=== PATIENT | female | born 1930 | race Caucasian/White ===

== ENCOUNTER 2018-07-12 11:50 | Emergency (ER) | payer MEDICARE ==
[2018-07-12 12:21] VITALS: BP 143/85
--- NOTE | 2018-07-12 12:26 | UC ---
UC General HPI - HPI Summary HPI Summary: pt c/o 10 day hx urinary frequency and irritation with urination for about 10 days. no abdominal pain, flank pain or fever. - History of Current Complaint Stated Complaint: URINARY COMPLAINT Time Seen by Provider: 07/12/18 12:12 Hx Obtained From: Patient Onset/Duration: Gradual Onset Timing: Constant Associated Signs & Symptoms: Negative: Abdominal Pain, Fever - Allergy/Home Medications Allergies/Adverse Reactions: Allergies Allergy/AdvReac Type Severity Reaction Status Date / Time No Known Allergies Allergy Verified 07/12/18 12:21 PMH/Surg Hx/FS Hx/Imm Hx - Additional Past Medical History Additional PMH: cardiac valve dz Endocrine History: Thyroid Disease, Dyslipidemia Cardiovascular History: Hypertension GI/ History: Gastroesophageal Reflux - Surgical History Surgical History: Yes Surgery Procedure, Year, and Place: triple bipass, abd surgery for adhesions - Family History Known Family History: Positive: Non-Contributory - Social History Occupation: Retired Substance Use Type: None - Immunization History Vaccination Up to Date: Yes Review of Systems All Other Systems Reviewed And Are Negative: Yes Constitutional: Positive: Negative Skin: Positive: Negative Eyes: Positive: Negative ENT: Positive: Negative Respiratory: Positive: Negative Cardiovascular: Positive: Negative Gastrointestinal: Positive: Negative Genitourinary: Positive: Frequency Motor: Positive: Negative Neurovascular: Positive: Negative Musculoskeletal: Positive: Negative Neurological: Positive: Negative Psychological: Positive: Negative Is Patient Immunocompromised?: No Physical Exam Triage Information Reviewed: Yes Appearance: Well-Appearing Vital Signs Reviewed: Yes Eyes: Positive: Conjunctiva Clear ENT: Positive: Normal ENT inspection Neck: Positive: Supple Respiratory: Positive: Lungs clear Cardiovascular: Positive: RRR Abdomen Description: Positive: Nontender, No Organomegaly, Soft. Negative: CVA Tenderness (R), CVA Tenderness (L), Distended, Guarding Bowel Sounds: Positive: Present Musculoskeletal: Positive: ROM Intact Neurological: Positive: Alert Psychological: Positive: Age Appropriate Behavior Skin Exam: Normal Diagnostics - Laboratory Diagnostic Studies Completed/Ordered: u/a=blood, leukocytes and nitrites. culture pending Course/Dx - Diagnoses Provider Diagnosis: UTI (urinary tract infection) Discharge - Sign-Out/Discharge Documenting (check all that apply): Patient Departure All imaging exams completed and their final reports reviewed: No Studies - Discharge Plan Condition: Stable Disposition: HOME Prescriptions: Cephalexin CAP* [Keflex CAP*] 500 mg PO BID 7 Days #14 cap Patient Education Materials: Urinary Tract Infection in Women (ED) Referrals: Carlos Alberto Alonso MD [Primary Care Provider] - 7 Days - Billing Disposition and Condition Condition: STABLE Disposition: Home
== END 2018-07-12 12:38 | disposition home or self-care (01) ==
LOC: UCCORT 11:50
DX: N39.0 Urinary tract infection, site not specified (principal); B96.20 Unspecified Escherichia coli [E. coli] as the cause of diseases classified elsewhere; I10 Essential (primary) hypertension
CPT/HCPCS: 81003; 87077; 87086; 87186; 99202; G0463

== ENCOUNTER 2018-10-03 12:25 | Emergency (ER) | payer MEDICARE | END 2018-10-03 12:50 | disposition left against medical advice (07) | LOC: UCCORT 12:25 | DX: Z53.21 Procedure and treatment not carried out due to patient leaving prior to being seen by health care provider (principal) ==

== ENCOUNTER 2019-03-20 10:26 | Emergency (ER) | payer MEDICARE ==
[2019-03-20 11:35] VITALS: BP 184/84
--- NOTE | 2019-03-20 11:57 | UC ---
Skin Complaint HPI - HPI Summary HPI Summary: Pt presents with c/o erythematous skin on right medial tibia just proximal of knee joint. Pt states that she was bit by a mosquito a few days ago and she began scratching at the bite and now has a reddened area that is non tender, no longer "itchy" and not warmer to touch than surrounding area. Pt denies being bit by tick. - History of Current Complaint Chief Complaint: UCSkin Time Seen by Provider: 03/20/19 11:49 Stated Complaint: RT LEG SKIN COMPLAINT Hx Obtained From: Patient ?: No Onset/Duration: Gradual Onset, Lasting Days, Still Present Skin Exposure Onset/Duration: Days Ago Timing: Constant Onset Severity: Mild Current Severity: Moderate Pain Intensity: 0 Location: Discrete Character: Redness Aggravating Factor(s): Nothing Alleviating Factor(s): Nothing Associated Signs & Symptoms: Positive: Rash Related History: Insect Bite/Sting - Allergy/Home Medications Allergies/Adverse Reactions: Allergies Allergy/AdvReac Type Severity Reaction Status Date / Time No Known Allergies Allergy Verified 03/20/19 11:29 PMH/Surg Hx/FS Hx/Imm Hx Previously Healthy: Yes Endocrine History: Thyroid Disease, Dyslipidemia Cardiovascular History: Cardiac Disease, Hypertension - Surgical History Surgical History: Yes Surgery Procedure, Year, and Place: triple bipass, abd surgery for adhesions - Family History Known Family History: Positive: Non-Contributory - Social History Occupation: Retired Lives: With Family Alcohol Use: None Substance Use Type: None Smoking Status (MU): Former Smoker Have You Smoked in the Last Year: No When Did the Patient Quit Smoking/Using Tobacco: age 35 - Immunization History Vaccination Up to Date: Yes Review of Systems All Other Systems Reviewed And Are Negative: Yes Constitutional: Positive: Negative Skin: Positive: Rash Eyes: Positive: Negative ENT: Positive: Negative Respiratory: Positive: Negative Cardiovascular: Positive: Negative Gastrointestinal: Positive: Negative Motor: Positive: Negative Neurovascular: Positive: Negative Musculoskeletal: Positive: Negative Neurological: Positive: Negative Psychological: Positive: Negative Is Patient Immunocompromised?: No Physical Exam Triage Information Reviewed: Yes Appearance: Well-Appearing, No Pain Distress, Well-Nourished Vital Signs: Initial Vital Signs Temp 98.9 F 03/20/19 11:31 Pulse 67 03/20/19 11:31 Resp 18 03/20/19 11:31 BP 184/84 03/20/19 11:31 Pulse Ox 100 03/20/19 11:31 Vital Signs Reviewed: Yes Eye Exam: Normal ENT: Positive: Hearing grossly normal Dental Exam: Normal Neck exam: Normal Respiratory: Positive: No respiratory distress Musculoskeletal Exam: Normal Neurological Exam: Normal Psychological Exam: Normal Skin: Positive: Rashes - right medial upper tibia, blanchable, slight bruising, erythematous, skin is not warmer that surrounding skin, non tender Course/Dx - Differential Diagnoses - Skin Complaint Differential Diagnoses: Cellulitis, Tick Born Illness - Diagnoses Provider Diagnosis: Insect bite of right lower leg Discharge - Sign-Out/Discharge Documenting (check all that apply): Patient Departure All imaging exams completed and their final reports reviewed: No Studies - Discharge Plan Condition: Stable Disposition: HOME Prescriptions: DOXYcycline CAP(*) [DOXYcycline 100MG CAP(*)] 100 mg PO Q12H #20 cap Patient Education Materials: Insect Bite or Sting (ED) Referrals: Carlos Alberto Alonso MD [Primary Care Provider] - If Needed - Billing Disposition and Condition Condition: STABLE Disposition: Home
== END 2019-03-20 12:05 | disposition home or self-care (01) ==
LOC: UCCORT 10:26
DX: S80.861A Insect bite (nonvenomous), right lower leg, initial encounter (principal); W57.XXXA Bitten or stung by nonvenomous insect and other nonvenomous arthropods, initial encounter; Y92.9 Unspecified place or not applicable; Z87.891 Personal history of nicotine dependence
CPT/HCPCS: 99212; G0463

== ENCOUNTER 2019-04-29 07:21 | Emergency (ER) | payer MEDICARE ==
[2019-04-29 07:43] VITALS: BP 182/89
--- NOTE | 2019-04-29 07:51 | UC ---
Skin Complaint HPI - HPI Summary HPI Summary: cat bite right hand x 1 day bit or scratch of his right pinky pain is 5 out of 10 , worse with movement , better with pressure - History of Current Complaint Chief Complaint: UCSkin Time Seen by Provider: 04/29/19 07:32 Stated Complaint: CAT SCRATCH-RIGHT PINKY FINGER Hx Obtained From: Patient Onset/Duration: Sudden Onset, Lasting Hours - 2 Timing: Constant Onset Severity: Moderate Current Severity: Moderate Pain Intensity: 6 Location: Discrete - right pinky Character: Pain Aggravating Factor(s): Touch Alleviating Factor(s): Other - pressure - Allergy/Home Medications Allergies/Adverse Reactions: Allergies Allergy/AdvReac Type Severity Reaction Status Date / Time No Known Allergies Allergy Verified 04/29/19 07:39 Home Medications: Home Medications Hayes-3/Dha/Epa/Fish Oil [Fish Oil 1,000 mg Softgel] 1,000 mg PO DAILY 04/29/19 [History Confirmed 04/29/19] Ubidecarenone [Coq10] 100 mg PO DAILY 04/29/19 [History Confirmed 04/29/19] PMH/Surg Hx/FS Hx/Imm Hx Endocrine History: Thyroid Disease, Hypothyroidism Cardiovascular History: Cardiac Disease, Hypertension - Surgical History Surgical History: Yes Surgery Procedure, Year, and Place: triple bipass, abd surgery for adhesions - Family History Known Family History: Positive: Non-Contributory - Social History Alcohol Use: None Substance Use Type: None Smoking Status (MU): Former Smoker Have You Smoked in the Last Year: No When Did the Patient Quit Smoking/Using Tobacco: age 35 - Immunization History Vaccination Up to Date: Yes Review of Systems All Other Systems Reviewed And Are Negative: Yes Constitutional: Positive: Negative Eyes: Positive: Negative ENT: Positive: Negative Respiratory: Positive: Negative Is Patient Immunocompromised?: No Physical Exam Triage Information Reviewed: Yes Appearance: Well-Appearing, No Pain Distress, Well-Nourished Vital Signs: Initial Vital Signs Temp 98.2 F 04/29/19 07:37 Pulse 71 04/29/19 07:37 Resp 16 04/29/19 07:37 BP 182/89 04/29/19 07:37 Pulse Ox 99 04/29/19 07:37 Vital Signs Reviewed: Yes Eye Exam: Normal Eyes: Positive: Conjunctiva Clear ENT: Positive: Normal ENT inspection, Hearing grossly normal, Pharynx normal Neck: Positive: Supple, Nontender, No Lymphadenopathy Respiratory: Positive: Chest non-tender, Lungs clear, Normal breath sounds Cardiovascular: Positive: RRR, No Murmur, Pulses Normal Skin: Positive: Other - laceration right pinky 1 cm dut to cat scratch / bite , minimal bleeding no need to repair lac Course/Dx - Diagnoses Provider Diagnosis: Laceration of right little finger, Cat bite of right hand Discharge ED - Sign-Out/Discharge Documenting (check all that apply): Patient Departure All imaging exams completed and their final reports reviewed: No Studies - Discharge Plan Condition: Stable Disposition: HOME Prescriptions: Amoxicillin/Clavulanate TAB* [Augmentin TAB 875*] 875 mg PO BID #20 tab Patient Education Materials: Animal Bite (ED), Laceration (ED) Referrals: Carlos Alberto Alonso MD [Primary Care Provider] - 5 Days Additional Instructions: laceration of the finger due to animal bite / scratch will not repair / suture keep the wound clean and dry will start antibiotics follow up in 5 days for wound check, sooner if getting worse - Billing Disposition and Condition Condition: STABLE Disposition: Home
[2019-04-29] MEDS ORDERED: Tetan/Diph/Pertus SYR(Tdap)* 0.5 ML SYR(BOOSTRIX) use SYR IM ONE (08:01)
== END 2019-04-29 08:44 | disposition home or self-care (01) ==
LOC: UCCORT 07:21
DX: S61.256A Open bite of right little finger without damage to nail, initial encounter (principal); W55.01XA Bitten by cat, initial encounter; Y92.9 Unspecified place or not applicable; I10 Essential (primary) hypertension; Z87.891 Personal history of nicotine dependence; Z23 Encounter for immunization
CPT/HCPCS: 90471; 90715; 99212; G0463

== ENCOUNTER 2019-05-03 14:57 | Emergency (ER) | payer MEDICARE ==
[2019-05-03 15:23] VITALS: BP 143/70
--- NOTE | 2019-05-03 15:56 | UC ---
HPI Wound/Suture Re-check - HPI Summary HPI Summary: Pt was in recently with a cat scratch/bite on R 5th finger and went home with a dressing. Pt in today for dressing change, as she was told to keep the dressing on for 5 days, but her primary care is closed today. - History Of Current Complaint Chief Complaint: UCWounds Stated Complaint: DRESSING CHANGE/RECHECK CAT BITE Time Seen by Provider: 05/03/19 15:41 Hx Obtained From: Patient Onset/Duration: Sudden Onset, Lasting Days Severity: Mild Pain Intensity: 0 Hands: 1 - v shaped wound 2 - small irregular wound not well adhered - Allergies/Home Medications Allergies/Adverse Reactions: Allergies Allergy/AdvReac Type Severity Reaction Status Date / Time No Known Allergies Allergy Verified 05/03/19 15:23 PMH/Surg Hx/FS Hx/Imm Hx Previously Healthy: Yes - Surgical History Surgical History: Yes Surgery Procedure, Year, and Place: triple bipass, abd surgery for adhesions - Family History Known Family History: Positive: Non-Contributory - Social History Alcohol Use: None Substance Use Type: None Smoking Status (MU): Former Smoker Have You Smoked in the Last Year: No When Did the Patient Quit Smoking/Using Tobacco: age 35 - Immunization History Vaccination Up to Date: Yes Review of Systems All Other Systems Reviewed And Are Negative: Yes Skin: Positive: Other - healing wounds on Is Patient Immunocompromised?: No Physical Exam Triage Information Reviewed: Yes Appearance: Well-Appearing, No Pain Distress, Well-Nourished Vital Signs: Initial Vital Signs Temp 97.7 F 05/03/19 15:19 Pulse 71 05/03/19 15:19 Resp 16 05/03/19 15:19 BP 143/70 05/03/19 15:19 Pulse Ox 98 05/03/19 15:19 Vital Signs Reviewed: Yes Eye Exam: Normal ENT Exam: Normal Dental Exam: Normal Neck exam: Normal Respiratory Exam: Normal Respiratory: Positive: Chest non-tender, Lungs clear, Normal breath sounds Cardiovascular Exam: Normal Cardiovascular: Positive: RRR, No Murmur, Pulses Normal Abdominal Exam: Normal Bowel Sounds: Positive: Present Musculoskeletal Exam: Normal Neurological Exam: Normal Psychological Exam: Normal Skin: Positive: Other - 2 irregular shaped leasion on the right pinky, helaing well, still not completely adhered, but no sign of infection Course/Dx - Course Course Of Treatment: hx obtained, exam performed ,meds reivewed, wound redressed and adivsed to follow up with PCP if not continuing to improve - Differential Dx - Laceration/Wound Differential Diagnoses: Healing Wound - Diagnosis Provider Diagnosis: Healing wound Discharge ED - Sign-Out/Discharge Documenting (check all that apply): Patient Departure All imaging exams completed and their final reports reviewed: Yes - Discharge Plan Condition: Stable Disposition: ELOPEMENT Referrals: Carlos Alberto Alonso MD [Primary Care Provider] - Additional Instructions: 1. Let the steri strips fall off on their own. 2. Jhonatan area clean and dry follow up with any sign of infection - Billing Disposition and Condition Condition: STABLE Disposition: Elopement
== END 2019-05-03 16:02 | disposition home or self-care (01) ==
LOC: UCCORT 14:57
DX: Z51.89 Encounter for other specified aftercare (principal); S61.256A Open bite of right little finger without damage to nail, initial encounter; W55.01XA Bitten by cat, initial encounter; Y93.89 Activity, other specified; Y92.9 Unspecified place or not applicable; Z87.891 Personal history of nicotine dependence; Z95.1 Presence of aortocoronary bypass graft
CPT/HCPCS: 99211; G0463

== ENCOUNTER 2019-09-10 10:33 | Emergency (ER) | payer MEDICARE ==
--- NOTE | 2019-09-10 11:16 | UC ---
Abdominal Pain Female HPI - HPI Summary HPI Summary: 88 yo woman with onset of left flank pain which feels to her as though it is in the fat pad of her left abdomen x 2 weeks ago. This is not affected by eating, but is sore when clothing touches it or when she rolls to that side. Stools are normal, no nausea or vomiting. She has no associated rash. On arrival and on subsequent checks she is found to have elevated blood pressure up to 180/110, having stopped her antihypertensives several months ago because they make her feel dizzy. Review of pharmacy record shows that she was taking amlodipine 5mg daily and metoprolol. She is uncertain of her last visit with Dr. Gordon, says between 1 and 2 years ago. Over the course of several hours with us, she revealed that she is regularly seen by ORTHOPEDIC DENTIST at Dr. Marroquin's office once yearly, and that she has an abdoina; aneurysm being followed by vascular surgeon at [facility], uncertain name. She denies headache, dizziness, visual changes, chest pain or shortness of breath, and her decision to be seen today is based on coming in with her for follow up of his pneumonia. She is not taking medications for pain. She admits to feeling stressed by her 's needs following a stroke, and to having to manage all of their home responsibility which includes taking in a litter of 5 kittens several months ago. - History of Current Complaint Chief Complaint: UCGeneralIllness Stated Complaint: PAIN IN SIDE Time Seen by Provider: 09/10/19 11:13 Hx Obtained From: Patient Onset/Duration: Gradual Onset, Lasting Weeks - 4 Timing: Intermittent Episodes Lasting: - hours Severity Initially: Moderate Severity Currently: Moderate Pain Intensity: 8 Location: Other - left flank Radiates: No Character: Sharp Aggravating Factor(s): Movement Alleviating Factor(s): Nothing Associated Signs and Symptoms: Positive: Negative Allergies/Adverse Reactions: Allergies Allergy/AdvReac Type Severity Reaction Status Date / Time No Known Allergies Allergy Verified 09/10/19 10:45 Home Medications: Home Medications NK [No Home Medications Reported] 09/10/19 [History Confirmed 09/10/19] PMH/Surg Hx/FS Hx/Imm Hx Endocrine History: Hypothyroidism Cardiovascular History: Cardiac Disease, Hypertension, Other - abdominal aortic aneurysm. - Surgical History Surgical History: Yes Surgery Procedure, Year, and Place: triple bipass, abd surgery for adhesions - Family History Known Family History: Positive: Non-Contributory - Social History Occupation: Retired Lives: With Family - lives with her spouse, one daughter lives locally Alcohol Use: None Substance Use Type: None Smoking Status (MU): Former Smoker Have You Smoked in the Last Year: No When Did the Patient Quit Smoking/Using Tobacco: age 35 - Immunization History Vaccination Up to Date: Yes Review of Systems All Other Systems Reviewed And Are Negative: Yes Constitutional: Positive: Negative Skin: Positive: Negative Eyes: Positive: Negative ENT: Positive: Negative Respiratory: Positive: Negative Cardiovascular: Positive: Other - says no angina recently; post CT of the abdomen, she states that she knows that she has an abdominal aneurysm, and sees a vascular surgeon in [place] whose name she does not know. States that she was seen 3 months ago and given a year's follow up.. Negative: Chest Pain Gastrointestinal: Positive: Abdominal Pain Genitourinary: Positive: Hematuria - on UA Motor: Positive: Negative Neurovascular: Positive: Negative Musculoskeletal: Positive: Negative Neurological: Positive: Negative Psychological: Positive: Anxious - feels under a lot of stress following her 's recent stroke and managing everything at home. Is Patient Immunocompromised?: No Physical Exam Triage Information Reviewed: Yes Appearance: Well-Appearing - Looks younger than age, moves and speaks easily without shortness of breath or any signs of distress., No Pain Distress Vital Signs: Initial Vital Signs Temp 98.7 F 09/10/19 10:46 Pulse 84 09/10/19 10:46 Resp 16 09/10/19 10:46 BP 200/118 09/10/19 10:46 Pulse Ox 100 09/10/19 10:46 Eye Exam: Normal ENT: Positive: Pharynx normal, TMs normal Neck: Positive: Supple, Nontender, No Lymphadenopathy Respiratory: Positive: Lungs clear, Normal breath sounds Cardiovascular: Positive: RRR, Murmur:Sys:Grade _?_/ - 2/6 at left sternal border. 3/6 at apex Abdominal Exam: Other - tenderness is in the left flank Abdomen Description: Positive: Soft, Other: - pulsatile aorta palpable in upper abdomen. Negative: CVA Tenderness (R), CVA Tenderness (L), Distended, Guarding Musculoskeletal Exam: Normal Neurological: Positive: Alert, Muscle Tone Normal Skin Exam: Normal - no rash observed on trunk Diagnostics - Laboratory Lab Results: UA with trace hematuria. - Radiology No standard instances Radiology Interpretation Completed By: Radiologist - Patient Name: SAMEER BAY Medical Record#: [id number] Ordering Physician: Sherrie Coronado MD Acct.#: [id number] : 1930 Age: 88 Sex: F Location: [facility] Exam Date: 09/10/19 1238 ADM Status: REG ER Order Information: CT ABD/PEL W/O Accession Number: [id number] CPT: 76756 CLINICAL HISTORY: left flank pain and hematuria COMPARISON: Ultrasound dated December 18, 2013 TECHNIQUE: Multiple contiguous axial CT scans were obtained of the abdomen and pelvis, without intravenous contrast enhancement. Coronal and sagittal multiplanar reformations are submitted for review. Oral contrast was not administered. FINDINGS: Evaluation is limited due to the lack of intravenous contrast. This limits evaluation of the solid organs and vasculature. LUNG BASES: The lung bases are clear. LIVER: The liver is normal in shape, size, contour, and attenuation. BILE DUCTS: There is no intrahepatic or extrahepatic biliary dilatation. GALLBLADDER: The gallbladder is normal, without pericholecystic inflammatory change. PANCREAS: The pancreas is normal, without mass or ductal dilatation. SPLEEN: Normal in size and appearance. UPPER GI TRACT: Evaluation of the gastrointestinal tract is limited by incomplete gastric distention. The upper GI tract is unremarkable. SMALL BOWEL AND MESENTERY: The small bowel is normal in contour, course, and caliber. There is no obstruction or dilatation. COLON: The colon is normal in contour, course, caliber. There is no pericolonic inflammatory change. ADRENALS: Normal bilaterally. KIDNEYS: The left kidney is atrophic. There is no appreciable hydronephrosis or nephrolithiasis. BLADDER: The bladder is smooth in contour. PELVIC ORGANS: The pelvic organs are not visualized. AORTA: There is atherosclerosis of the aorta. The aorta is tortuous and diffusely dilated measuring up to 4.7 cm x 4.2 cm transversely above the renal arteries and 4.4 x 4.4 cm below the renal arteries. 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 IVC: Unremarkable LYMPH NODES: There is no lymphadenopathy by size criteria. ABDOMINAL WALL: There is no evidence for abdominal wall hernia. BONES AND SOFT TISSUES: There is a scoliotic curvature of the spine. Degenerative changes are noted. OTHER: None IMPRESSION: 1. NO APPRECIABLE HYDRONEPHROSIS OR NEPHROLITHIASIS. 2. ATROPHIC LEFT KIDNEY. This report is only to be considered final once signed by the Provider(s) as displayed in the "<Electronically Signed by >" field (s). Absence of a signature indicates the report is in a draft status and still needs to be finalized. In the event this document was created by someone other than the signing Provider, the individual initiating the document will be listed in the "Entered by:" or "Dictated by:" coppola. 1 of 2 - EKG Cardiac Rate: NL Cardiac Rhythm: Sinus: Normal Ectopy: None ST Segment: Non-Specific Abd Pain Female Course/Dx - Course Course Of Treatment: After CT of the abdomen, I contacted Dr. Marroquin's office regarding last known status of aneurysm. In the past, records show AAA up to 5.2 cm, and this is being monitored. She is seen there annually, with last check in December 2018, upcoming December 2019, and known hx of aneurysm. Mrs. Bay is a pleasant but vague historian who presented with severe elevation of blood pressure after discontinuing her medications, with an otherwise benign exam. The cause of her left flank pain is uncertain, and she has no rash to suggest zoster. She has a trace of hematuria, wiich could also be benign. Non- contrasted CT shows that she has an atrophic left kidney, and she states that she is not aware of this. In addition, she has a hert murmur suggest of MR, but clincal sx do not suggest CHF. We discussed the importatnce of follow up, and during the course of her evaluation we contacted Dr. Gordon' office and arrangeed a visit for next week. 'I advised her strongly to resume use of metoprolol given her hx of aneurysm, and she is aware to proceed to the ER if she has increasing pain or symptoms to suggest extension of AAA. - Differential Dx/Diagnosis Differential Diagnosis: Abdominal Aortic Aneurysm, Constipation, Diverticulitis , Renal Colic Provider Diagnosis: Left flank pain Discharge ED - Sign-Out/Discharge Documenting (check all that apply): Patient Departure All imaging exams completed and their final reports reviewed: Yes - Discharge Plan Condition: Stable Disposition: HOME Patient Education Materials: Chronic Hypertension (ED) Referrals: Carlos Alberto Gordon MD [Primary Care Provider] - Additional Instructions: PLEASE IMMEDIATELY RESUME USE OF METOPROLOL--IT IS VERY IMPORTANT THAT YOU BRING THIS BLOOD PRESSURE DOWN. PLEASE FOLLOW UP WITH Deepika BARKSDALE AT DR. GORDON OFFICE ON 09/16/2019 AT 0830. IT IS ESSENTIAL THAT YOU KEEP THIS VISIT OR REARRANGE IT. IF YOU HAVE INCREASING PAIN PLEASE GO IMMEDIATELY TO THE EMERGENCY ROOM. - Billing Disposition and Condition Condition: STABLE Disposition: Home
[2019-09-10 13:57] VITALS: BP 202/103
== END 2019-09-10 14:51 | disposition home or self-care (01) ==
LOC: UCCORT 10:33
DX: R10.9 Unspecified abdominal pain (principal); N26.1 Atrophy of kidney (terminal)
CPT/HCPCS: 74176; 81003; 87086; 93005; 99212; G0463